=== PATIENT | female | born 1965 | race Caucasian/White ===

== ENCOUNTER 2018-09-14 07:30 | Inpatient (IN) ==
[2018-09-06 15:15] LABS: Basophils % 0.3 % (0.0-0.8); Eosinophils # 0.1 10*3/uL (0.0-0.87); Eosinophils % 1.2 % (0.00-10.9); Hematocrit 41.3 VOL% (35.7-47.0); Hemoglobin 13.7 GM/DL (12.0-16.0); Immature Granulocytes % 0.2 %; Immature Granulocytes Absolute 0.02 #; Lymphocytes # 2.7 10*3/uL (1.4-4.0); Lymphocytes % 26.4 % (21.3-54.2); Mean Corpuscular HGB Conc 33.2 GM/DL (32-36); Mean Corpuscular Hemoglobin 29 PG (27-34); Mean Corpuscular Volume 88.4 FL (87-102); Mean Platelet Volume 9.7 FL (9.6-12.0); Monocytes # 0.7 10*3/uL (0.11-0.8); Monocytes % 6.6 % (1.7-12.7); Neutrophils # 6.6 10*3/uL (1.4-7.4); Neutrophils % 65.3 % (38.7-73.9); Platelet Count 236 T/CUMM (130-400); Red Blood Count 4.67 MC/CUMM (3.8-5.5); White Blood Count 10.1 T/CUMM (4-12)
[2018-09-06 15:36] LABS: Calcium 9.4 MG/DL (8.5-10.1); Osmolality,Calculated 280.5 MOS/KG (273-304); Potassium 3.6 MMOL/L (3.5-5.1)
[~2018-09-14 07:30] MED LIST: ACETAMINOPHEN 1,000 MG/100 ML VIAL IV ONE; BUPIVACAINE LIPOSOMAL 20 ML/266 MG VIAL ONE; BUPIVACAINE MPF 0.25% /EPI 30 ML VIAL ONE; HEPARIN 5,000 UNIT/1 ML VIAL ONE; HYOSCYAMINE 0.125 MG TABLET ONE; LIDOCAINE 1%/EPI INJ 20 ML VIAL ONE; PANTOPRAZOLE 40 MG VIAL IV ONE; SCOPOLAMINE 1.5 MG PATCH TRANSDERM ONE; TISSUE ADHESIVE 1 EACH APPLICATOR TOP ONE; cefOXitin 3,000 MG in SYRINGE 1 EACH IV ONE
[2018-10-05 11:14] LABS: Hemoglobin 13.3 GM/DL (12.0-16.0)
[2018-10-05 11:41] LABS: Calcium 8.9 MG/DL (8.5-10.1); Osmolality,Calculated 274.8 MOS/KG (273-304); Potassium 3.8 MMOL/L (3.5-5.1)
[2018-10-12] MEDS ORDERED: ACETAMINOPHEN INJ 1,000 MG in PREMIX 1 EACH IV ONE (09:00)
[2018-10-12] MEDS ORDERED: cefOXitin 2,000 MG in SYRINGE 1 EACH IV ONE (09:00)
[2018-10-12] MEDS ORDERED: HYOSCYAMINE 0.125 MG TABLET SL ONE (09:00)
[2018-10-12] MEDS ORDERED: SCOPOLAMINE 1.5 MG PATCH TRANSDERM ONE ×2 (09:00→09:03)
[2018-10-12] MEDS ORDERED: LACTATED RINGERS 1,000 ML IV SCH (09:00)
[2018-10-12] MEDS ORDERED: PANTOPRAZOLE 40 MG VIAL IV ONE ×2 (09:00→09:03)
[2018-10-12] MEDS ORDERED: HEPARIN 5,000 UNIT/1 ML VIAL SUBCUT ONE (09:00)
[2018-10-12] MEDS ORDERED: HEPARIN 5,000 UNIT/1 ML VIAL ONE (09:03)
[2018-10-12] MEDS ORDERED: HYOSCYAMINE 0.125 MG TABLET ONE (09:03)
[2018-10-12] MEDS ORDERED: ACETAMINOPHEN 1,000 MG/100 ML VIAL IV ONE ×2 (09:03→13:00)
[2018-10-12] MEDS ORDERED: BUPIVACAINE LIPOSOMAL 20 ML/266 MG VIAL ONE (10:30)
[2018-10-12] MEDS ORDERED: LIDOCAINE 1%/EPI INJ 20 ML VIAL ONE (10:30)
[2018-10-12] MEDS ORDERED: SEVOFLURANE 1 UNIT/15 MINUTE INH ONE (12:59)
[2018-10-12] MEDS ORDERED: MIDAZOLAM 2 MG/2 ML VIAL ONE (12:59)
[2018-10-12] MEDS ORDERED: HYDROmorphone 2 MG/1 ML VIAL ONE (13:00)
[2018-10-12] MEDS ORDERED: fentaNYL 100 MCG/2 ML VIAL ONE (13:00)
[2018-10-12] MEDS ORDERED: LACTATED RINGERS 1,000 ML IV ONE (13:00)
[2018-10-12] MEDS ORDERED: LABETALOL 20 MG/4 ML SYRINGE IV ONE (13:00)
[2018-10-12] MEDS ORDERED: ONDANSETRON 4 MG/2 ML VIAL ONE (13:00)
[2018-10-12] MEDS ORDERED: ePHEDrine 50 MG/ML AMP ONE (13:01)
[2018-10-12] MEDS ORDERED: GLYCOPYRROLATE 0.4 MG/2 ML VIAL ONE (13:01)
[2018-10-12] MEDS ORDERED: NEOSTIGMINE 10 MG/10 ML VIAL ONE (13:01)
[2018-10-12] MEDS ORDERED: ROCURONIUM 100 MG/10 ML VIAL IV ONE (13:02)
[2018-10-12] MEDS ORDERED: PROPOFOL 200 MG/20 ML VIAL IV ONE (13:02)
[2018-10-12] MEDS ORDERED: ONDANSETRON 4 MG/2 ML VIAL IV PRN (13:09)
[2018-10-12] MEDS: HYDROmorphone 2 MG/1 ML VIAL IV PRN ×2 (13:13→13:25)
[2018-10-12] MEDS ORDERED: HYDROcod/ACETAMIN 7.5-325 MG/15 ML UDCUP PO PRN (13:19)
[2018-10-12] MEDS ORDERED: hydrALAZINE 20 MG/1 ML VIAL IV PRN (13:19)
[2018-10-12] MEDS ORDERED: MORPHINE 4 MG/1 ML VIAL IV PRN (13:19)
[2018-10-12] MEDS: LACTATED RINGERS 1,000 ML IV SCH ×2 (16:49→23:33)
[2018-10-12] MEDS: ONDANSETRON 4 MG/2 ML VIAL IV PRN ×2 (16:53→23:33)
[2018-10-12] MEDS: ceFAZolin 2,000 MG in PREMIX 1 EACH IV SCH (19:54)
[2018-10-13] MEDS: ceFAZolin 2,000 MG in PREMIX 1 EACH IV SCH (04:32)
[2018-10-13 05:51] LABS: Basophils % 0.2 % (0.0-0.8); Calcium 8.5 MG/DL (8.5-10.1); Eosinophils % 0.1 % (0.00-10.9); Hemoglobin 12.1 GM/DL (12.0-16.0); Immature Granulocytes % 0.6 %; Immature Granulocytes Absolute 0.07 #; Lymphocytes # 1.4 10*3/uL (1.4-4.0); Mean Corpuscular HGB Conc 32.7 GM/DL (32-36); Mean Corpuscular Hemoglobin 29 PG (27-34); Mean Corpuscular Volume 88.7 FL (87-102); Mean Platelet Volume 9.6 FL (9.6-12.0); Monocytes # 0.7 10*3/uL (0.11-0.8); Monocytes % 5.7 % (1.7-12.7); Neutrophils # 9.2 10*3/uL (1.4-7.4); Neutrophils % 81.4 % (38.7-73.9); Osmolality,Calculated 274.7 MOS/KG (273-304); Platelet Count 192 T/CUMM (130-400); Potassium 3.6 MMOL/L (3.5-5.1); Red Blood Count 4.17 MC/CUMM (3.8-5.5); Red Cell Distribution Width 12.7 % (9.3-17.3); White Blood Count 11.3 T/CUMM (4-12)
[2018-10-13] MEDS: PANTOPRAZOLE 40 MG VIAL IV SCH (09:05)
[2018-10-13] MEDS: ONDANSETRON 4 MG/2 ML VIAL IV PRN ×2 (09:06→16:37)
[2018-10-13] MEDS: SIMETHICONE CHEW 80 MG TABLET PO SCH ×3 (13:35→21:30)
[2018-10-13] MEDS: LACTATED RINGERS 1,000 ML IV SCH ×3 (21:35→22:18)
[2018-10-14] MEDS: LACTATED RINGERS 1,000 ML IV SCH ×2 (05:10→06:29)
[2018-10-14 05:55] LABS: Basophils % 0.3 % (0.0-0.8); Eosinophils % 0.2 % (0.00-10.9); Hematocrit 36.9 VOL% (35.7-47.0); Hemoglobin 11.8 GM/DL (12.0-16.0); Immature Granulocytes % 0.6 %; Immature Granulocytes Absolute 0.05 #; Lymphocytes # 1.6 10*3/uL (1.4-4.0); Mean Corpuscular Hemoglobin 29 PG (27-34); Mean Corpuscular Volume 91.1 FL (87-102); Mean Platelet Volume 10.1 FL (9.6-12.0); Monocytes # 0.6 10*3/uL (0.11-0.8); Monocytes % 6.9 % (1.7-12.7); Neutrophils # 6.5 10*3/uL (1.4-7.4); Platelet Count 177 T/CUMM (130-400); Red Blood Count 4.05 MC/CUMM (3.8-5.5); Red Cell Distribution Width 12.8 % (9.3-17.3); White Blood Count 8.8 T/CUMM (4-12)
[2018-10-14 06:19] LABS: Calcium 8.2 MG/DL (8.5-10.1); Osmolality,Calculated 277.3 MOS/KG (273-304); Potassium 3.5 MMOL/L (3.5-5.1)
[2018-10-14] MEDS: PANTOPRAZOLE 40 MG VIAL IV SCH (08:16)
[2018-10-14] MEDS: SIMETHICONE CHEW 80 MG TABLET PO SCH (08:16)
[2018-10-14 08:31] VITALS: BP 154/79
[2018-10-14] MEDS ORDERED: ENOXAPARIN 40 MG/0.4 ML SYRINGE SUBCUT SCH (09:00)
== END 2018-10-14 11:40 | disposition home or self-care (01) | DRG 621 ==
LOC: N.SDSINP 10-12 05:54 → N.3E 10-12 13:40
PROVIDERS: ADMIT Surgery; ATTEND Surgery